=== PATIENT | female | born 1960 | race African-American/Black ===

== ENCOUNTER 2018-04-01 22:15 | Emergency (ER) | payer MEDICAID ==
[~2018-04-01] VITALS: Ht 162.6 cm; Wt 73.0 kg
[~2018-04-01 22:15] MED LIST: ALBUTEROL; ALLO100T; LISINOPRIL; NITR0.4T49; NO MEDS
[2018-04-01] MEDS ORDERED: VISCOUS LIDOCAINE 2% 15 ML UDC MM STA (22:48)
[2018-04-01] MEDS ORDERED: KETOROLAC 30MG/ML VIAL IV STA (22:48)
[2018-04-01 23:45] LABS: T4 FREE 1.12 ng/dL (0.76-1.46)
[2018-04-02] MEDS ORDERED: ACETAMINOPHEN 500MG TABLET PO ONE (00:15)
[2018-04-02] MEDS ORDERED: BENZONATATE 200MG CAPSULE PO ONE (00:15)
[2018-04-02 01:20] VITALS: BP 182/100
== END 2018-04-02 01:10 | disposition home or self-care (01) ==
LOC: ER 22:29
DX: J02.9 Acute pharyngitis, unspecified (principal); R51 Headache; I10 Essential (primary) hypertension; F17.200 Nicotine dependence, unspecified, uncomplicated; F14.10 Cocaine abuse, uncomplicated; J45.909 Unspecified asthma, uncomplicated; M10.9 Gout, unspecified; Z91.14 Patient's other noncompliance with medication regimen; Z88.6 Allergy status to analgesic agent; Z88.8 Allergy status to other drugs, medicaments and biological substances
CPT/HCPCS: 36415; 84439; 84443; 96374; 99283; 99406; J1885

== ENCOUNTER 2018-04-02 01:15 | Emergency (ER) | payer MEDICAID | END 2018-04-02 01:50 | disposition left against medical advice (07) | LOC: ER 01:15 | DX: R06.02 Shortness of breath (principal); Z53.21 Procedure and treatment not carried out due to patient leaving prior to being seen by health care provider ==

== ENCOUNTER 2018-04-02 05:53 | Emergency (ER) | payer MEDICAID ==
[~2018-04-02] VITALS: Ht 162.6 cm; Wt 72.0 kg
[2018-04-02] MEDS ORDERED: KETOROLAC 30MG/ML VIAL IV ONE (07:00)
[2018-04-02 08:39] LABS: BASOPHILS % 0.5 % (0.0-2.0); EOSINOPHILS % 0.8 % (0.0-5.0); HEMATOCRIT. 39.5 % (36.0-48.0); HEMOGLOBIN. 12.8 g/dL (12.0-16.0); LYMPHOCYTES % 12.1 % (20.0-50.0); MEAN CORPUSCULAR HEMOGLOBIN 30.4 pg (28.0-32.0); MEAN PLATELET VOLUME 8.3 fl (7.4-10.4); MONOCYTES % 11.7 % (2.0-8.0); NEUTROPHILS % 74.9 % (40.0-76.0); PLATELET 250 x1000/uL (130-400); RED CELL DISTRIBUTION WIDTH 15.1 % (11.6-14.6)
[2018-04-02 08:45] LABS: CHLORIDE 105 mEq/L (98-107)
[2018-04-02] MEDS ORDERED: SODIUM CHLORIDE 0.9% 1,000 ML IV ONE (09:15)
[2018-04-02 10:06] VITALS: BP 140/72
== END 2018-04-02 11:11 | disposition home or self-care (01) ==
LOC: ER 05:53
DX: M54.2 Cervicalgia (principal); R51 Headache; M54.12 Radiculopathy, cervical region; F17.200 Nicotine dependence, unspecified, uncomplicated; F14.10 Cocaine abuse, uncomplicated; J45.909 Unspecified asthma, uncomplicated; M10.9 Gout, unspecified; Z98.51 Tubal ligation status; Z88.6 Allergy status to analgesic agent; Z88.8 Allergy status to other drugs, medicaments and biological substances
CPT/HCPCS: 36415; 70450; 70491; 72125; 80048; 85025; 96374; 99284; J1885; J7030